=== PATIENT | female | born 1990 | race Caucasian/White ===

== ENCOUNTER 2016-09-09 11:15 | Emergency (ER) | payer OTHER ==
[~2016-09-09] VITALS: Ht 170.2 cm; Wt 71.2 kg
[~2016-09-09 11:15] MED LIST: POLYTRIM O200 GTT/BO OPH; TRI-PREVIFEM 351 TAB PO
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
[2016-09-09] MEDS ORDERED: IBUPROFEN800 M1 PO (13:43)
[2016-09-09] MEDS ORDERED: CYCLOBENZAPRINE10 M1 PO (13:43)
[2016-09-09 13:55] VITALS: BP 124/74
== END 2016-09-09 13:56 ==
LOC: ERH 11:15
DX: S16.1XXA Strain of muscle, fascia and tendon at neck level, initial encounter (principal); S90.31XA Contusion of right foot, initial encounter; Y04.0XXA Assault by unarmed brawl or fight, initial encounter; Y93.9 Activity, unspecified; Y92.9 Unspecified place or not applicable
CPT/HCPCS: 72050; 73630-RT; 81025

== ENCOUNTER 2017-04-26 09:23 | Emergency (ER) | payer OTHER ==
[~2017-04-26] VITALS: Ht 170.2 cm; Wt 72.6 kg
[~2017-04-26 09:23] MED LIST changes: +CYCLOBENZAPRINE10 M1 PO; +IBUPROFEN800 M1 PO; +PRENATAL FORMU1 EAC1 PO; +ZOFRAN ODT4 M1 SL
[2017-04-26 09:42] LABS: ABSOLUTE BASOPHIL COUNT 0 /CUMM (0.0-0.2); ABSOLUTE EOSINOPHIL COUNT 0.1 /CUMM (0.0-0.7); ABSOLUTE GRANULOCYTE CT 3.8 /CUMM (1.4-6.5); ABSOLUTE LYMPH COUNT 2.1 /CUMM (1.2-3.4); ABSOLUTE MONOCYTE COUNT 0.4 /CUMM (0.10-0.60); BASOPHIL % 0.4 % (0.0-2.0); EOSINOPHIL % 1.1 % (0-5); GRANULOCYTE % 59.4 % (42.2-75.2); HEMATOCRIT 38.7 % (37-47); MEAN CORPUSCULAR HGB CONC 34.5 G/DL (33.0-37.0); MEAN CORPUSCULAR VOLUME 89.7 FL (81.0-99.0); MEAN PLATELET VOLUME 9.4 FL (7.4-10.4); PLATELET COUNT 140 /CUMM (130-400); RBC DISTRIBUTION WIDTH 13.9 % (11.5-14.5); RED BLOOD CELL CT 4.31 /CUMM (4.20-5.40); WHITE BLOOD CELL COUNT 6.4 /CUMM (4.8-10.8)
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
--- NOTE | 2017-04-26 13:31 | ULTRASOUND REPORT ---
EXAMINATION: US , VIABILITY CLINICAL INFORMATION: Lower pelvic pain today. COMPARISON: None TECHNIQUE: Transabdominal sonographic evaluation of the fetus. FINDINGS: The fetus is in longitudinal lie, in vertex position. movements are noted. Limited measurements are obtained: Femur length 1.94 cm Abdominal circumference 11.34 cm Head circumference 13.29 cm OFD 4.53 cm BPD 3.69 cm There is a regular heart rate at 156 bpm. Anterior positioning of the placenta. The cervix appears closed. Grossly normal amniotic fluid. IMPRESSION: Single live intrauterine . Gestational age by ultrasound of 16 weeks 6 days, which corresponds to current size and dates.
[2017-04-26 15:09] VITALS: BP 124/75
== END 2017-04-26 15:17 ==
LOC: ERH 09:23
PROVIDERS: Emergency Medicine
DX: O26.92 Pregnancy related conditions, unspecified, second trimester (principal); R10.30 Lower abdominal pain, unspecified; R74.8 Abnormal levels of other serum enzymes; Z3A.16 16 weeks gestation of pregnancy
CPT/HCPCS: 81001

== ENCOUNTER 2017-06-10 20:42 | Emergency (ER) | payer OTHER ==
[~2017-06-10] VITALS: Ht 170.2 cm; Wt 77.1 kg
--- NOTE | 2017-06-10 20:50 | ED DYSPNEA/ASTHMA COMPLAINT ---
History of Present Illness General Chief Complaint: Dyspnea (COPD, CHF, Other) Stated Complaint: SOB, 23 WEEKS Source: patient Exam Limitations: no limitations Vital Signs & Intake/Output Vital Signs & Intake/Output Vital Signs Date Time Temp Pulse Resp B/P B/P Pulse O2 O2 Flow FiO2 Mean Ox Delivery Rate 06/10 2234 98.2 72 18 109/70 99 Room Air 06/10 2114 97 Room Air 06/10 2050 99.1 98 18 109/71 95 Room Air Allergies Coded Allergies: ziprasidone (LOCK JAW & STIFF NECK 06/10/17) Reconcile Medications Ondansetron (Zofran Odt) 4 MG TAB.RAPDIS 1 TAB SL Q6P PRN NAUSEA/VOMITING Ondansetron (Zofran Odt) 4 MG TAB.RAPDIS 1 TAB SL TID PRN NAUSEA Vits #93/Iron Fum/FA ( Formula Tablet) 9 MG IRON-267 MCG TABLET 1 TAB PO DAILY (Reported) Triage Nurses Notes Reviewed? yes Onset: Gradual Duration: week(s):, waxing and waning Timing: recent history Severity: mild Activities at Onset: none Modifying Factors: Improves With: rest. Associated Symptoms: nausea, vomiting HPI: 26 yo woman g4,p1sab3, 23 weeks gestation presents with dyspnea x 1-2 days, body aches, nausea, vomiting. "This has been hard... I've had nausea for the past several weeks with vomiting." She has mild cough, wheeze, no significant lower extremity swelling, no fever, phlegm, abdominal pain/contractions/dysuria/vaginal bleeding or discharge. Past History Travel History Traveled to [place] past 21 day No Medical History Any Pertinent Medical History? see below for history Neurological: NONE EENT: NONE Cardiovascular: NONE Respiratory: NONE Gastrointestinal: NONE Hepatic: NONE Renal: NONE Musculoskeletal: NONE Psychiatric: NONE Endocrine: NONE Blood Disorders: NONE Cancer(s): NONE HEAD OF HUMAN RESOURCES/Reproductive: D & C Tetanus Vaccine: 12/08/11 Surgical History Surgical History: NONE Psychosocial History What is your primary language Serbian Family History Hx Contributory? No Review of Systems Review of Systems Constitutional: Reports: no symptoms. EENTM: Reports: no symptoms. Respiratory: Reports: no symptoms. Cardiovascular: Reports: no symptoms. GI: Reports: no symptoms. Genitourinary: Reports: no symptoms. Musculoskeletal: Reports: no symptoms. Skin: Reports: no symptoms. Neurological/Psychological: Reports: no symptoms. Hematologic/Endocrine: Reports: no symptoms. Immunologic/Allergic: Reports: no symptoms. All Other Systems: Reviewed and Negative Physical Exam Physical Exam General Appearance: well developed/nourished, no apparent distress Head: atraumatic, normal appearance Eyes: Bilateral: normal appearance. Ears, Nose, Throat: normal pharynx, normal ENT inspection Neck: normal inspection, supple, full range of motion Respiratory: mild wheeze/coarse bilaterally Cardiovascular: regular rate/rhythm Gastrointestinal: normal bowel sounds, soft, non-tender, no organomegaly Extremities: normal inspection, normal capillary refill, normal range of motion, no edema Neurologic/Psych: no motor/sensory deficits, awake, alert, oriented x 3 Skin: intact, normal color, warm/dry Core Measures ACS in differential dx? No CVA/TIA Diagnosis No Sepsis Present: No Sepsis Focused Exam Completed? No Progress Differential Diagnosis: viral syndrome vs other. Plan of Care: Orders Procedure Date/time Status URINALYSIS 06/10 2105 Complete TROPONIN LEVEL 06/10 2105 Complete COMPREHENSIVE METABOLIC PANEL 06/10 2105 Complete CBC WITHOUT DIFFERENTIAL 06/10 2105 Complete EKG 06/10 2105 Active Laboratory Tests 06/10/172134: Anion Gap 12, Estimated GFR > 60, BUN/Creatinine Ratio 22.0, Glucose 78, Calcium 9.2, Total Bilirubin 0.3, AST 17, ALT 21, Alkaline Phosphatase 56, Troponin I < 0.01, Total Protein 6.5, Albumin 3.7, Globulin 2.8, Albumin/Globulin Ratio 1.3, CBC w Diff NO MAN DIFF REQ, RBC 4.09 L, MCV 92.7, MCH 30.9, MCHC 33.3, RDW 14.0 , MPV 9.8, Gran % 52.9, Lymphocytes % 38.3, Monocytes % 7.4, Eosinophils % 1.3, Basophils % 0.1, Absolute Granulocytes 3.9, Absolute Lymphocytes 2.9, Absolute Monocytes 0.6, Absolute Eosinophils 0.1, Absolute Basophils 0 06/10/172124: Urinalysis MANY H, Urine Color YEL, Urine Clarity HAZY H, Urine pH 6.5, Ur Specific [place] 1.020, Urine Protein NEG, Urine Ketones NEG, Urine Nitrite NEG, Urine Bilirubin NEG, Urine Urobilinogen 1.0, Ur Leukocyte Esterase NEG, Ur Microscopic SEDIMENT EXAMINED, Ur Epithelial Cells MOD H, Urine Hemoglobin NEG, Urine Glucose NEG Initial ED EKG: normal axis, normal intervals, normal p-waves, normal QRS complex, normal sinus rhythm Departure Departure Disposition: HOME OR SELF CARE Condition: Stable Clinical Impression Primary Impression: Secondary Impressions: Bronchospasm, Viral syndrome Referrals: Olesya Nichole DO (PCP/Family) Departure Forms: Customer Survey General Discharge Information Prescriptions: Current Visit Scripts Ondansetron (Zofran Odt) 1 TAB SL TID PRN NAUSEA #10 TAB Comments 06/10/17, 22:52.... pt feeling better.... wishes to go home... pt give rx for zofran and will return if not feeling better. Critical Care Note Critical Care Note Critical Care Time: non-applicable
[2017-06-10 21:45] LABS: ABSOLUTE BASOPHIL COUNT 0 /CUMM (0.0-0.2); ABSOLUTE EOSINOPHIL COUNT 0.1 /CUMM (0.0-0.7); ABSOLUTE GRANULOCYTE CT 3.9 /CUMM (1.4-6.5); ABSOLUTE LYMPH COUNT 2.9 /CUMM (1.2-3.4); ABSOLUTE MONOCYTE COUNT 0.6 /CUMM (0.10-0.60); BASOPHIL % 0.1 % (0.0-2.0); EOSINOPHIL % 1.3 % (0-5); GRANULOCYTE % 52.9 % (42.2-75.2); HEMATOCRIT 37.9 % (37-47); MEAN CORPUSCULAR HGB 30.9 PG (27.0-31.0); MEAN CORPUSCULAR HGB CONC 33.3 G/DL (33.0-37.0); MEAN CORPUSCULAR VOLUME 92.7 FL (81.0-99.0); MEAN PLATELET VOLUME 9.8 FL (7.4-10.4); PLATELET COUNT 134 /CUMM (130-400); RED BLOOD CELL CT 4.09 /CUMM (4.20-5.40); WHITE BLOOD CELL COUNT 7.4 /CUMM (4.8-10.8)
[2017-06-10 22:35] VITALS: BP 109/70
[2017-06-10] MEDS ORDERED: ZOFRAN ODT4 M1 SL (22:47)
== END 2017-06-10 22:53 ==
LOC: ERH 20:42
PROVIDERS: Pediatrics
DX: O26.92 Pregnancy related conditions, unspecified, second trimester (principal); J98.01 Acute bronchospasm; B34.9 Viral infection, unspecified
CPT/HCPCS: 81001; 93005; 93010

== ENCOUNTER 2017-07-19 09:13 | Emergency (ER) | payer OTHER ==
[~2017-07-19] VITALS: Ht 170.2 cm; Wt 79.8 kg
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
[2017-07-19 10:22] LABS: ABSOLUTE BASOPHIL COUNT 0 /CUMM (0.0-0.2); ABSOLUTE EOSINOPHIL COUNT 0.1 /CUMM (0.0-0.7); ABSOLUTE GRANULOCYTE CT 4.3 /CUMM (1.4-6.5); ABSOLUTE MONOCYTE COUNT 0.3 /CUMM (0.10-0.60); BASOPHIL % 0.3 % (0.0-2.0); EOSINOPHIL % 0.8 % (0-5); GRANULOCYTE % 64.4 % (42.2-75.2); HEMATOCRIT 40.6 % (37-47); MEAN CORPUSCULAR HGB 31.1 PG (27.0-31.0); MEAN CORPUSCULAR HGB CONC 33.5 G/DL (33.0-37.0); MEAN CORPUSCULAR VOLUME 92.7 FL (81.0-99.0); MEAN PLATELET VOLUME 9.4 FL (7.4-10.4); PLATELET COUNT 123 /CUMM (130-400); RBC DISTRIBUTION WIDTH 14.1 % (11.5-14.5); RED BLOOD CELL CT 4.38 /CUMM (4.20-5.40); WHITE BLOOD CELL COUNT 6.7 /CUMM (4.8-10.8)
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
[2017-07-19] MEDS ORDERED: SERTRALINE HCL25 MG PO (14:59)
[2017-07-19 15:06] VITALS: BP 119/78
== END 2017-07-19 16:15 ==
LOC: ERH 09:13
PROVIDERS: Student in an Organized Health Care Education/Training Program
DX: F41.9 Anxiety disorder, unspecified (principal)
CPT/HCPCS: 80307; G0463; G0480

== ENCOUNTER 2017-10-04 08:05 | Inpatient (IN) | payer OTHER ==
[~2017-10-04] VITALS: Ht 170.2 cm; Wt 81.6 kg
[~2017-10-04 08:05] MED LIST changes: +SERTRALINE HCL25 MG PO
[2017-10-04 08:53] LABS: ABSOLUTE BASOPHIL COUNT 0 /CUMM (0.0-0.2); ABSOLUTE EOSINOPHIL COUNT 0.1 /CUMM (0.0-0.7); ABSOLUTE GRANULOCYTE CT 4.8 /CUMM (1.4-6.5); ABSOLUTE LYMPH COUNT 2.7 /CUMM (1.2-3.4); ABSOLUTE MONOCYTE COUNT 0.7 /CUMM (0.10-0.60); BASOPHIL % 0.5 % (0.0-2.0); EOSINOPHIL % 1.2 % (0-5); HEMATOCRIT 39.5 % (37-47); MEAN CORPUSCULAR HGB 31.5 PG (27.0-31.0); MEAN CORPUSCULAR HGB CONC 34.7 G/DL (33.0-37.0); MEAN CORPUSCULAR VOLUME 90.7 FL (81.0-99.0); MEAN PLATELET VOLUME 10.9 FL (7.4-10.4); PLATELET COUNT 114 /CUMM (130-400); RBC DISTRIBUTION WIDTH 13.8 % (11.5-14.5); RED BLOOD CELL CT 4.35 /CUMM (4.20-5.40); WHITE BLOOD CELL COUNT 8.2 /CUMM (4.8-10.8)
--- NOTE | 2017-10-04 21:37 | History & Physical ---
General Information and HPI MD Statement: I have seen and personally examined REJI COLE and documented this H&P. The patient is a 26 year old female at [39] weeks and [3] days gestation who presented with a chief complaint of [iol]. History of Present Illness: 26YO LMP 12/28/16 EDC 10/08/17 AT [id number] PRESENTS FOR IOL. BABY IS FOR ADOPTION AND ADOPTIVE COUPLE IS PRESENT FOR DELIVERY. CARE COMPLETE AND REMARKABLE FOR SEVERE ANXIETY AND IS BEING SEEN BY PSYCOLOGIST. 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 EENTM: Reports: no symptoms. Cardiovascular: Reports: no symptoms. Respiratory: Reports: no symptoms. GI: Reports: no symptoms. Genitourinary: Reports: no symptoms. Musculoskeletal: Reports: no symptoms. Skin: Reports: no symptoms. Neurological/Psychological: Reports: anxiety. Hematologic/Endocrine: Reports: no symptoms. Immunologic/Allergic: Reports: no symptoms. All Other Systems: Reviewed and Negative Exam & Diagnostic Data Last 24 Hrs of Vital Signs/I&O Intake & Output 10/04 1600 10/04 0800 10/04 0000 Intake Total Output Total Balance Patient 180 lb Weight Obstetric Exam Wgt Gained During : 25 Pelvimetry: DIRECTOR OF HOTEL OPERATIONS Dilation (cm): 1 Effacement (%): 50 Station: -2 Membranes: intact Fluid: unknown Fundal Height (cm): 39 Multiple Gestation? No Contractions: RARE Infant #1 - FHR Baseline: 130 Category: 1 Estimated Weight: 6.5 Presentation: CEPHALIC Patient for Induction? Yes Velázquez Score Velázquez Score Response Value Cervix Position: posterior 0 Cervix Consistency: soft 2 Cervix Effacement: 30-50% 1 Cervix Dilation: 1-2 cm 1 Cervix Station: -2 1 Total 5 Physical Exam: HEENT: NCAT CHEST: CTA CV: NL S1S2 ABD: GRAVID, CEPHALIC, EFW 6.5 EXT: NO C/C/E Labs Blood Type & Rh: O POS Antibody Screen: NEG Hct/Hgb & Platelets #1: 39/12/137 Hct/Hgb & Platelets #2: 43/14/156 Rubella: IMM VDRL #1: NR VDRL #2: NR HbsAg: NEG HIV #1: NEG HIV #2 NEG 1 Hr P Group B Strep: NEG Initial Ultrasound: WNL Anatomy Ultrasound: WNL Ultrasound for EFW: 6 Genetic Testing: NEG Assessment/Plan Assessment/Plan: IOL ADOPTION PITOCIN IOL As Ranked By This Provider Problem List: 1. Core Measures Venous Thromboembolism VTE Risk Factors / No Mechanical VTE Prophylaxis d/t Early Ambulation No VTE Pharm Prophylaxis d/t Bleeding (Active)
--- NOTE | 2017-10-04 21:39 | PN- Obstetrical ---
Subjective Subjective: NO C/O Review of Systems: FH CAT 2 PITOCIN D/C'D Objective Last 24 Hrs of Vital Signs/I&O Intake & Output 10/04 1600 10/04 0800 10/04 0000 Intake Total Output Total Balance Patient 180 lb Weight Physical Exam: CX: 3/80/-2 Obstetric Exam Dilation (cm): 3 Effacement (%): 80 Station: -2 Membranes: AROM Fluid: light meconium Multiple Gestation? No Contractions: Q2 Infant #1 - FHR Baseline: 130 Category: 1 Estimated Weight: 6.5 Presentation: CEPHALIC Assessment/Plan Assessment/Plan CAT2 FH WITH PITOCIN REMOTE FROM DELIVERY ADEQUATE UCS X 4 HOURS NO CERVICAL CHANGE AFTER 2 HOURS PROCEED TO C SECTION Problem List: 1.
--- NOTE | 2017-10-04 21:45 | Labor & Delivery Summary ---
Delivery Summary Section: Section: primary Indication: NRFHR Anesthesia: EPI Placenta: Placenta: abnormal, 1/4 ABRUPTION Anesthesia: EPIDURAL Cord PH Value: 7.26 Baby's Weight: 7/12 Apgars - 1 Min: 5 Apgars - 5 Min: 9
--- NOTE | 2017-10-04 21:53 | Operative Report ---
Operative/Inv Procedure Report Surgery Date: 10/04/17 Name of Procedure: Primary Pre-Operative Diagnosis: Nonreassuring heart rate testing Post-Operative Diagnosis: Malposition, 25% abruption, thick meconium Estimated Blood Loss: 765 Surgeon/Fresh Food Manager: Eduard Douglas MD,Jim Zelaya M.D. Anesthesia: epidural Operative/Procedure Note Note: The patient was brought to the operating room placed on the OR table in the dorsal supine position. She was given adequate reinforcement of her epidural. Burnette catheter had previously been placed and was draining clear yellow urine. The abdomen was prepped and draped in usual sterile fashion. Venodyne boots were placed on the lower extremities and activated. The skin was tested and a Pfannenstiel skin incision was made with a scalpel and taken down to the layer of the fascia. The fascia was nicked in the midline and extended bilaterally. The underlying rectus muscles are and the peritoneal cavity was entered sharply. Bladder blade was inserted to protect the bladder from the operative field and a bladder flap was created using Metzenbaum scissors. A low transverse uterine incision was made with scalpel and this was extended bilaterally. Membranes were ruptured revealing thick meconium. A liveborn male infant was delivered from the direct OT position atraumatically and handed off to the home advisor for evaluation. Approximately 25% of the placenta delivered spontaneously consistent with abruption. The remainder of the placenta was removed quite easily and sent to pathology. The uterus was exteriorized and wiped clean with a wet lap sponge. The uterine incision was then closed in 2 layers of 0 Polysorb, the second imbricating the first. The abdomen and pelvis were copiously irrigated and uterus placed back into the abdominal cavity and the suture lines was Visualized and noted to be hemostatic. The peritoneum was closed with 2-0 Polysorb in a running nonlocking fashion. Rectus muscles were reapproximated as well with interrupted sutures. The fascia was closed with #1 Polysorb in a running nonlocking fashion. Subcutaneous tissues were irrigated where needed and coagulated. Skin was closed using chayo. A dry sterile dressing was applied to the wound. The patient was then sent to recovery in good condition. All needle, sponge, and instrument counts were correct at the end of the procedure 4.
[2017-10-04 23:01] VITALS: BP 114/67
[2017-10-05 06:56] LABS: ABSOLUTE BASOPHIL COUNT 0 /CUMM (0.0-0.2); ABSOLUTE EOSINOPHIL COUNT 0 /CUMM (0.0-0.7); ABSOLUTE MONOCYTE COUNT 0.8 /CUMM (0.10-0.60); EOSINOPHIL % 0 % (0-5); HEMATOCRIT 35.8 % (37-47); RBC DISTRIBUTION WIDTH 13.8 % (11.5-14.5)
[2017-10-05 07:05] LABS: ABSOLUTE GRANULOCYTE CT 11.5 /CUMM (1.4-6.5); ABSOLUTE LYMPH COUNT 1.3 /CUMM (1.2-3.4); BASOPHIL % 0 % (0.0-2.0); MEAN CORPUSCULAR HGB CONC 33.5 G/DL (33.0-37.0); MEAN CORPUSCULAR VOLUME 92.3 FL (81.0-99.0); MEAN PLATELET VOLUME 11.3 FL (7.4-10.4); RED BLOOD CELL CT 3.88 /CUMM (4.20-5.40)
[2017-10-05 07:11] LABS: WHITE BLOOD CELL COUNT 13.5 /CUMM (4.8-10.8)
[2017-10-05 07:17] LABS: GRANULOCYTE % 85.1 % (42.2-75.2); PLATELET COUNT 111 /CUMM (130-400)
--- NOTE | 2017-10-06 07:42 | PN- Post Delivery/GYN ---
Subjective Subjective: PT W/O C/O Review of Systems: POS FLATUS Objective Last 24 Hrs of Vital Signs/I&O VSS AFEBRILE Physical Exam: INCISION C/D/I EXT NT Assessment/Plan Assessment/Plan S/P C/S POD 2 STABLE DESIRES EARLY DISCHARGE Problem List: 1.
[2017-10-06] MEDS ORDERED: IBUPROFEN800 M1 PO (07:46)
[2017-10-06] MEDS ORDERED: XANAX0.25 M1 PO (07:46)
[2017-10-06] MEDS ORDERED: PERCOCET 5-3251 EACH PO (07:46)
[2017-10-06] MEDS ORDERED: DOCUSATE SODIU100 M3 PO (07:46)
== END 2017-10-06 16:55 | DRG 540 ==
LOC: GNO 08:05
PROVIDERS: Obstetrics & Gynecology
PROC: 10D00Z1 Extraction of Products of Conception, Low, Open Approach (ICD-10-PCS; principal; 2017-10-04)
DX: O76 Abnormality in fetal heart rate and rhythm complicating labor and delivery (principal); Z3A.39 39 weeks gestation of pregnancy; Z37.0 Single live birth; O99.344 Other mental disorders complicating childbirth; F41.9 Anxiety disorder, unspecified; O36.5930 Maternal care for other known or suspected poor fetal growth, third trimester, not applicable or unspecified; F32.9 Major depressive disorder, single episode, unspecified; Z02.82 Encounter for adoption services
CPT/HCPCS: GNOP; GNOS; 36415; 80307; 81001; 84112; 87086; 88307; G0463; J1200; J1885; J2405; J3105; J7120